=== PATIENT | female | born 1985 | race Caucasian/White ===

== ENCOUNTER 2016-11-19 20:22 | Inpatient (IN) | payer OTHER ==
[~2016-11-19] VITALS: Ht 157.5 cm; Wt 65.9 kg
--- NOTE | ~2016-11-19 | 2DMMODE ---
[facility] [address] [place] [address] 2 D/M-MODE ECHOCARDIOGRAM Name: CHUCK GRAYSON Room #: 448-P [facility] IN ..#: [id number] Admission: 11/19/16 Attend Phys: Harsha Naranjo, Discharge: Date of : 83 Date of Service: 11/21/16 1019 Report #: [id number] THIS REPORT FOR: //name// APPROVED REPORT Study performed: 11/21/2016 08:47:16 EXAM: Comprehensive 2D, Doppler, and color-flow Echocardiogram Patient Location: Echo lab Room #: [facility] Status: routine BSA: 1.68 HR: 81 bpm BP: 152/97 mmHg Other Information Study Quality: Good Indications Endocarditis Hx HTN 2D Dimensions RVDd: 35.45 mm LVEF(%): 80.38 (>50%) IVSd: 13.16 (7-11mm) LVOT Diam: 19.23 (18-24mm) LVDd: 42.27 mm PWd: 13.20 (7-11mm) LVDs: 21.70 (25-40mm) Aortic Root: 30.60 mm IVC: 1.90 mm Major's LVEF: 80.38 % Volumes Left Atrial Volume (Systole) Single Plane 4CH: 54.29 mL Single Plane 2CH: 43.07 mL LA ESV Index: 32.00 mL/m2 Aortic Valve AoV Peak Wayne.: 1.36 m/s AO Peak Gr.: 7.37 mmHg LVOT Max P.63 mmHg LVOT Max V: 1.08 m/s SURAJ Vmax: 2.30 cm2 Mitral Valve E/A Ratio: 1.2 MV Decel. Time: 237.68 ms MV E Max Wayne.: 0.82 m/s [facility] [place] [address] 2 D/M-MODE ECHOCARDIOGRAM Name: CHUCK GRAYSON Room #: 448-P [facility] IN .R.#: [id number] Admission: 11/19/16 Attend Phys: Harsha Naranjo, Discharge: Date of : 83 Date of Service: 11/21/16 1019 Report #: [id number] MV A Wayne.: 0.70 m/s MV PHT: 68.93 ms IVRT: 110.73 ms Pulmonary Valve PV Peak Wayne.: 0.94 m/s PV Peak Gr.: 3.53 mmHg Pulmonary Vein P Vein S: 0.58 m/s P Vein A: 0.35 m/s P Vein D: 0.39 m/s P Vein A Dur.: 83.0 msec P Vein S/D Ratio: 1.49 Tricuspid Valve TR Peak Wayne.: 2.48 m/s RAP Estimate: 5.00 mmHg TR Peak Gr.: 24.66 mmHg PA Pressure: 30.00 mmHg Left Ventricle The left ventricle is normal size. There is normal LV segmental wall motion. Mild concentric left ventricular hypertrophy. The left ventricular systolic function is normal. The left ventricular ejection fraction is within the normal range. LVEF is 65%. The left ventricular diastolic function is normal. Right Ventricle The right ventricle is normal size. The right ventricular systolic function is normal. Atria The left atrium size is normal. The right atrium size is normal. Aortic Valve The aortic valve is normal in structure. No aortic regurgitation is present. There is no aortic valvular stenosis. Mitral Valve The mitral valve is normal in structure. Trace mitral regurgitation. No evidence of mitral valve stenosis. Tricuspid Valve The tricuspid valve is normal in structure. There is trace tricuspid regurgitation. The right atrial pressure is estimated at 5 mmHg. There is mild pulmonary hypertension with an estimated PAP of 30mmHg. [facility] [address] [place] [address] 2 D/M-MODE ECHOCARDIOGRAM Name: CHUCK GRAYSON Room #: 448-P [facility] IN [facility]#: [id number] Admission: 11/19/16 Attend Phys: Harsha Naranjo, Discharge: Date of : 83 Date of Service: 11/21/16 1019 Report #: [id number] Pulmonic Valve The pulmonary valve is normal in structure. There is no pulmonic valvular regurgitation. Great Vessels The aortic root is normal in size. IVC is normal in size and collapses >50% with inspiration. Pericardium No pericardial effusion. <Conclusion> The left ventricular systolic function is normal. Mild concentric left ventricular hypertrophy. There is normal LV segmental wall motion. LVEF is 65%. The aortic valve is normal in structure. No aortic regurgitation or stenosis The mitral valve is normal in structure. Trace mitral regurgitation. Pulmonary artery pressure of 30mmHg No pericardial effusion. <ELECTRONICALLY SIGNED> By: Mahin Hui MD, [facility] 11/21/16 1019 1019 1019 Mahin Hui MD, FAC /INF
[~2016-11-19 20:22] MED LIST: AMLODIPINE BESY10 MG PO; CELEXA 20 MG TA20 M1 PO; DESYREL50 MG PO; DIOVAN HCT 80-1 EACH PO; HYDROCHLOROTH12.5 MG PO; IBUPROFEN 600600 M1 PO; LISINOPRIL40 MG PO; NOHOMEMEDICATIONS; NORCO 10-325 T1 EACH PO; NORCO 5-325 TA1 EACH PO; NORVASC10 MG PO; PHENERGAN 25 MG25 M1 PO; PRILOSEC 20 MG20 MG PO; PRINIVIL20 MG PO; SPRINTEC1 EACH PO; TOPROL XL50 MG PO
[2016-11-19 20:34] VITALS: BP 180/113
[2016-11-19 20:59] LABS: HEMATOCRIT 38.7 % (37.0-47.0); HEMOGLOBIN 13.3 gm/dL (12.0-15.0); MCH 30.3 pg (26.0-34.0); MCHC 34.3 g/dL (28.0-37.0); MCV 88.2 fL (80.0-100.0); RBC 4.39 mil/uL (4.20-5.00); RDW 13.2 % (10.5-14.5)
[2016-11-19 21:00] LABS: URINE BILIRUBIN NEGATIVE (Negative); URINE BLOOD 3+ (Negative); URINE GLUCOSE-RANDOM* NEGATIVE (Negative); URINE KETONES NEGATIVE (Negative); URINE LEUKOCYTES-REFLEX TRACE (Negative); URINE PROTEIN (DIPSTICK) TRACE (Negative); URINE SPECIFIC GRAVITY 1.025 (1.003-1.035)
[2016-11-19 21:02] LABS: URINE COLOR DARK YELLOW
[2016-11-19 21:11] LABS: CALCIUM 8.8 mg/dL (8.5-10.1); POTASSIUM 3.5 mmol/L (3.5-5.1)
[2016-11-19 21:16] LABS: ALBUMIN 3.7 g/dL (3.4-5.0); TOTAL BILIRUBIN 1.1 mg/dL (<0.1-1.0); TOTAL PROTEIN 8.5 g/dL (6.4-8.2)
[2016-11-19 21:20] LABS: SQUAMOUS 4-10 Moderate /LPF (0-3)
[2016-11-19 21:21] LABS: CASTS None Seen /LPF (None Seen); CRYSTALS None Seen /LPF (None Seen); URINE RBC 3-10 Few /HPF (0-2); URINE WBC-REFLEX 0-5 Rare /HPF (0-5)
[2016-11-20 00:06] VITALS: BP 145/93
[2016-11-20 00:51] VITALS: BP 126/86
[2016-11-20 04:32] VITALS: BP 1118/74; BP 118/64
[2016-11-20 05:37] LABS: AMP/METHAMP POSITIVE (Negative); BARBITURATES Negative (Negative); BENZODIAZEPINES Negative (Negative); COCAINE Negative (Negative); METHADONE Negative (Negative); OPIATES Negative (Negative); PCP Negative (Negative); THC Negative (Negative)
[2016-11-20 07:04] LABS: HEMATOCRIT 32.8 % (37.0-47.0); MCH 29.8 pg (26.0-34.0); MCHC 32.9 g/dL (28.0-37.0); MCV 90.5 fL (80.0-100.0); RBC 3.63 mil/uL (4.20-5.00); RDW 12.9 % (10.5-14.5); WBC 12.2 thou/uL (4.0-11.0)
[2016-11-20 07:07] LABS: HEMOGLOBIN 10.8 gm/dL (12.0-15.0)
[2016-11-20 07:17] LABS: CALCIUM 7.4 mg/dL (8.5-10.1); CREATININE 0.8 mg/dL (0.6-1.0)
[2016-11-20 08:30] LABS: AMP/METHAMP POSITIVE (Negative); BARBITURATES Negative (Negative); BENZODIAZEPINES Negative (Negative); COCAINE Negative (Negative); METHADONE Negative (Negative); OPIATES Negative (Negative); PCP Negative (Negative); THC Negative (Negative)
[2016-11-20 12:51] VITALS: BP 119/74
[2016-11-20 16:39] VITALS: BP 128/87
[2016-11-20 20:10] VITALS: BP 140/96
[2016-11-21 04:30] VITALS: BP 152/97
[2016-11-21] MEDS ORDERED: AUGMENTIN 875875 MG PO (14:07)
[2016-11-21] MEDS ORDERED: HYDROCODONE-AP1 EAC6 PO (14:08)
[2016-11-21] MEDS ORDERED: LISINOPRIL20 MG PO (14:08)
[2016-11-21 15:46] VITALS: BP 152/97
[2016-11-21 18:01] VITALS: BP 164/109
== END 2016-11-21 17:00 | disposition home or self-care (01) | DRG 392 ==
LOC: ER 20:22 → 4S 23:35 → EROBS 23:35 → 4S 11-20 00:50
PROVIDERS: Emergency Medicine; Nurse Practitioner Acute Care
DX: R10.9 Unspecified abdominal pain (principal); R65.10 Systemic inflammatory response syndrome (SIRS) of non-infectious origin without acute organ dysfunction; S27.899A Unspecified injury of other specified intrathoracic organs, initial encounter; S22.31XA Fracture of one rib, right side, initial encounter for closed fracture; K80.80 Other cholelithiasis without obstruction; I10 Essential (primary) hypertension; F15.10 Other stimulant abuse, uncomplicated; F17.210 Nicotine dependence, cigarettes, uncomplicated; D72.829 Elevated white blood cell count, unspecified; V49.9XXA Car occupant (driver) (passenger) injured in unspecified traffic accident, initial encounter; Y93.89 Activity, other specified; Y92.89 Other specified places as the place of occurrence of the external cause; Y99.8 Other external cause status; Z88.2 Allergy status to sulfonamides; Z79.899 Other long term (current) drug therapy; Z71.51 Drug abuse counseling and surveillance of drug abuser
CPT/HCPCS: 10100

== ENCOUNTER 2018-12-19 16:52 | Emergency (ER) | payer OTHER ==
[~2018-12-19] VITALS: Ht 160 cm; Wt 63.5 kg
[~2018-12-19 16:52] MED LIST changes: +AUGMENTIN 875875 MG PO; +HYDROCODONE-AP1 EAC6 PO; +LISINOPRIL20 MG PO
[2018-12-19 17:26] LABS: URINE BILIRUBIN NEGATIVE (Negative); URINE BLOOD NEGATIVE (Negative); URINE CLARITY CLEAR; URINE COLOR YELLOW; URINE GLUCOSE-RANDOM* NEGATIVE (Negative); URINE KETONES NEGATIVE (Negative); URINE LEUKOCYTES NEGATIVE (Negative); URINE NITRITE NEGATIVE (Negative); URINE PROTEIN (DIPSTICK) TRACE (Negative); URINE SPECIFIC GRAVITY 1.025 (1.005-1.035)
[2018-12-19 17:36] LABS: ABSOLUTE NEUTROPHILS 8.8 thou/uL (1.4-8.2); BASOPHILS 0.3 % (0.0-2.0); EOSINOPHILS 0.4 % (0.0-3.0); HEMATOCRIT 44.8 % (37.0-47.0); HEMOGLOBIN 14.7 gm/dL (12.0-15.0); LYMPHOCYTES 15.3 % (24.0-44.0); MCH 29.2 pg (26.0-34.0); MCHC 32.8 g/dL (28.0-37.0); MCV 89.1 fL (80.0-100.0); MONOCYTES 4.9 % (1.0-8.0); PLATELET COUNT 234 thou/uL (150-400); POLYS 79.1 % (36.0-66.0); RBC 5.02 mil/uL (4.20-5.00); RDW 13.7 % (10.5-14.5); WBC 11.2 thou/uL (4.0-11.0)
[2018-12-19 17:44] LABS: CREATININE 0.8 mg/dL (0.6-1.0); POTASSIUM 3.1 mmol/L (3.5-5.1)
[2018-12-19 17:50] LABS: ALBUMIN 3.2 g/dL (3.4-5.0); TOTAL BILIRUBIN 0.3 mg/dL (<0.1-1.0); TOTAL PROTEIN 7.7 g/dL (6.4-8.2)
[2018-12-19 18:20] LABS: AMP/METHAMP POSITIVE (Negative); BARBITURATES Negative (Negative); BENZODIAZEPINES Negative (Negative); COCAINE Negative (Negative); METHADONE Negative (Negative); OPIATES Negative (Negative); PCP Negative (Negative)
[2018-12-19] MEDS ORDERED: PHENERGAN25 M1 RECTAL (21:16)
[2018-12-19 21:33] VITALS: BP 104/70
--- NOTE | 2018-12-21 14:11 | EKG ---
[facility] [address] [place] [address] ELECTROCARDIOGRAM REPORT Name: CHUCK GRAYSON Room #: DEP [facility]#: [id number] ������������������ Admission: 12/19/18 ������������������ Attend Phys: Discharge: 12/19/18 ������������������ Date of : 83 Report #: [id number] ����������������������������������������������������������������� [id number] THIS REPORT FOR: //name// [facility] ED Test Date: 2018-12-19 Test Time: 19:06:49 Pat Name: CHUCK GRAYSON Department: Room: Gender: F [employer]: [place] : 1985 Requested By: Adriana Kelly Order Number: [id number] MD: Mahin Hui Measurements Intervals [place] Rate: 82 P: 57 TX: 175 QRS: 20 QRSD: 87 T: 88 QT: 385 QTc: 450 Interpretive Statements Sinus rhythm Probable anteroseptal infarct, recent Compared to ECG 01/30/2015 10:09:12 No significant changes Electronically Signed On 12-21-2018 14:11:34 CDT by Mahin Hui [email or web address] ��������������������������������������������� <ELECTRONICALLY SIGNED> ���������������������������������������� By: Mahin Hui MD, [facility] ��������������������������������������������� 12/21/18 1411 1906 05 Mahin Hui MD, FACC /EPI
== END 2018-12-19 21:30 | disposition home or self-care (01) ==
LOC: ER 16:52
PROVIDERS: Emergency Medicine; Physician Assistant
DX: K80.20 Calculus of gallbladder without cholecystitis without obstruction (principal); E87.6 Hypokalemia; R11.2 Nausea with vomiting, unspecified; I10 Essential (primary) hypertension; E28.2 Polycystic ovarian syndrome; F15.10 Other stimulant abuse, uncomplicated; F17.210 Nicotine dependence, cigarettes, uncomplicated; Z98.890 Other specified postprocedural states; Z88.2 Allergy status to sulfonamides